=== PATIENT | female | born 1980 | race Caucasian/White ===

== ENCOUNTER 2017-07-16 19:32 | Emergency (ER) | payer OTHER ==
[2017-07-16 19:58] LABS: Amorphous Sediment,Urine Rare /hpf; Appearance,Urine Cloudy (Clear); Bacteria,Urine Rare /hpf; Bilirubin,Urine Negative (Negative); Glucose,Urine (UA) Negative (Negative); Ketones,Urine 1+ (Negative); Leukocyte Esterase,Urine Trace (Negative); Mucus,Urine Moderate /hpf; Nitrite,Urine Negative (Negative); PH, Urine 5.5 (5.0-8.0); Particle Count 14409; Protein,Urine 1+ (Negative); RBC,Urine 5 /hpf (0-5); Specific Gravity,Urine 1.041 (1.001-1.035); Squamous Epithelial Cell,Urine 17 /hpf (0-4); UA Billing (MACRO vs. MICRO) MICRO; WBC,Urine 2 /hpf (0-5)
[2017-07-16] MEDS ORDERED: KETOROLAC 30 MG/ML 1 ML VIAL IVP STA (20:25)
[2017-07-16 20:56] LABS: Basophils # (A) 0.1 k/uL (0-0.2); Basophils % (A) 0 %; CHCM 34.5; Eosinophils # (A) 0.4 k/uL (0-0.7); Eosinophils % (A) 4 %; HCT 44.4 % (34.0-46.0); HGB 14.9 gm/dL (11.4-16.0); Luc # (Auto) 0.31; Luc % (Auto) 3; Lymphocytes # (A) 3.4 k/uL (1.0-4.8); Lymphocytes % (A) 30 %; MCH 32.3 pg (25.0-35.0); MCHC 33.6 g/dL (31.0-37.0); MCV 96.2 fL (80.0-100.0); Mean Platelet Volume 6.8; Monocytes # (A) 0.6 k/uL (0-1.0); Monocytes % (A) 5 %; Neutrophils # (A) 6.6 k/uL (1.3-7.7); Neutrophils % (A) 58 %; RBC 4.61 m/uL (3.80-5.40); RDW 12.6 % (11.5-15.5); WBC 11.3 k/uL (3.8-10.6); WBC (Perox) 10.82
[2017-07-16 21:02] LABS: Anion Gap 14 mmol/L; Blood Urea Nitrogen 18 mg/dL (7-17); Calcium 10.6 mg/dL (8.4-10.2); Carbon Dioxide 21 mmol/L (22-30); Chloride 104 mmol/L (98-107); Glucose 83 mg/dL (74-99); Non-African American GFR(MDRD) >60 (>60 ml/min/1.73 sqM); Potassium 3.8 mmol/L (3.5-5.1); Sodium 139 mmol/L (137-145)
--- NOTE | 2017-07-16 21:18 | CT ---
EXAMINATION TYPE: CT renal stones wo con DATE OF EXAM: 07/16/2017 HISTORY: Low back pain. CT DLP: 506.90 mGycm. Automated Exposure Control for Dose Reduction was Utilized. TECHNIQUE: CT scan of the abdomen and pelvis is performed without oral or IV contrast. COMPARISON: NONE FINDINGS: Lung bases are clear of consolidation. There is no pleural effusion. There is no pericardi al effusion. Liver spleen pancreas gallbladder appear normal. Bile ducts are not dilated. There is no adrenal mass. Kidneys show normal size and contour. There is no hydronephrosis. There is no evidence of a renal calculus. There is no retroperitoneal adenopathy. There is no ascites. Appendi x appears normal. There is no free fluid. Bladder distends smoothly. There is no sign of a pelvic mas s. I see no intestinal wall thickening. There are no dilated loops. The bony structures are intact. CONCLUSION: Negative CT scan of the abdomen and pelvis. No evidence of renal stone or obstruction.
--- NOTE | 2017-07-16 21:48 | ED ---
General Adult HPI - General Chief complaint: Abdominal Pain Stated complaint: Abd Pain Time Seen by Provider: 07/16/17 19:44 Source: patient Mode of arrival: ambulatory Limitations: no limitations - History of Present Illness Initial comments: 37-year-old female presented for evaluation of lower back pain since last . She states her symptoms initially started with dysuria and urinary hesitancy which has since resolved however she denies back pain. She states that this is consistent with her previous diagnoses of pyelonephritis however she denies any associated fevers, chills, nausea, vomiting. She denies any associated abdominal pain, diarrhea, or constipation. - Related Data Home Medications Medication Instructions Recorded Confirmed Aspirin/Acetaminophen/Caffeine 3 tab PO DAILY PRN 07/16/17 07/16/17 [Excedrin Extra Strength Caplet] Previous Rx's Medication Instructions Recorded Ibuprofen [Motrin] 800 mg PO TID #30 tab 07/16/17 Ondansetron Odt [Zofran Odt] 4 mg PO Q8HR PRN #7 tab 07/16/17 Allergies Allergy/AdvReac Type Severity Reaction Status Date / Time sulfamethoxazole Allergy Rash/Hives Verified 07/16/17 19:50 [From Bactrim] trimethoprim [From Bactrim] Allergy Rash/Hives Verified 07/16/17 19:50 Review of Systems ROS Statement: Those systems with pertinent positive or pertinent negative responses have been documented in the HPI. ROS Other: All systems not noted in ROS Statement are negative. Constitutional: Denies: fever, chills Eyes: Denies: eye pain, vision change ENT: Denies: ear pain, throat pain Respiratory: Denies: cough, dyspnea Cardiovascular: Denies: chest pain, palpitations Endocrine: Denies: fatigue, polydipsia, polyuria Gastrointestinal: Denies: abdominal pain, nausea, vomiting Genitourinary: Reports: dysuria, other (Urinary hesitancy). Denies: urgency, hematuria, discharge, abnormal menses, dyspareunia Musculoskeletal: Reports: back pain. Denies: arthralgia, myalgia Skin: Denies: rash, lesions Neurological: Denies: headache, weakness Psychiatric: Denies: anxiety, depression Hematological/Lymphatic: Denies: easy bleeding, easy bruising Past Medical History Past Medical History: No Reported History History of Any Multi-Drug Resistant Organisms: None Reported Past Surgical History: Section Past Psychological History: No Psychological Hx Reported Smoking Status: Current every day smoker Past Alcohol Use History: Occasional Past Drug Use History: None Reported General Exam Limitations: no limitations General appearance: alert, in no apparent distress Head exam: Present: atraumatic, normocephalic, normal inspection Eye exam: Present: normal appearance, PERRL, EOMI. Absent: scleral icterus, conjunctival injection, periorbital swelling ENT exam: Present: normal exam, mucous membranes moist Neck exam: Present: normal inspection. Absent: tenderness, meningismus, lymphadenopathy Respiratory exam: Present: normal lung sounds bilaterally. Absent: respiratory distress, wheezes, rales, rhonchi, stridor Cardiovascular Exam: Present: regular rate, normal rhythm, normal heart sounds. Absent: systolic murmur, diastolic murmur, rubs, gallop, clicks GI/Abdominal exam: Present: soft, normal bowel sounds. Absent: distended, tenderness, guarding, rebound, rigid Rectal exam: Present: deferred Extremities exam: Present: normal inspection, full ROM, normal capillary refill. Absent: tenderness, pedal edema, joint swelling, calf tenderness Back exam: Present: full ROM, tenderness, CVA tenderness (R), CVA tenderness (L) , paraspinal tenderness. Absent: muscle spasm, vertebral tenderness, rash noted Neurological exam: Present: alert, oriented X3, CN II-XII intact Psychiatric exam: Present: normal affect, normal mood Skin exam: Present: warm, dry, intact, normal color. Absent: rash Course Vital Signs 07/16/17 07/16/17 19:34 21:59 Temperature 98 F 97.1 F L Pulse Rate 83 85 Respiratory 18 16 Rate Blood Pressure 116/80 118/75 O2 Sat by Pulse 97 100 Oximetry Medical Decision Making - Medical Decision Making 37-year-old female presented for evaluation of dysuria and low back pain present since last . She states this is consistent with her previous diagnoses of pyelonephritis. On physical examination she appears to be in mild discomfort however exam is tolerated well and she does have left and right CVA tenderness as well as low back pain. Abdomen is soft and non- peritoneal without guarding, rigidity, or rebound. Presentation is concerning for urinary tract infection versus pyelonephritis versus kidney stones. We'll obtain urinalysis, labs, CT abdomen and pelvis and provide pain control. Labs revealed no significant abnormalities over the urine appears to be contaminated. We'll send urine culture. CT abdomen and pelvis shows no acute process. The patient was reevaluated and had resolution of her symptoms. She was informed of these results and through shared decision making it was determined that she would be discharged with instructions to follow-up with her primary care physician but to return to this facility if her symptoms should worsen or persist. The patient acknowledged an understanding of all information provided and agreed with this plan of care. - Lab Data Result diagrams: 07/16/17 20:43 07/16/17 20:43 Lab Results 07/16/17 07/16/17 07/16/17 Range/Units 19:44 19:44 20:43 WBC (3.8-10.6) k/uL RBC (3.80-5.40) m/uL Hgb (11.4-16.0) gm/dL Hct (34.0-46.0) % MCV (80.0-100.0) fL MCH (25.0-35.0) pg MCHC (31.0-37.0) g/dL RDW (11.5-15.5) % Plt Count (150-450) k/uL Neutrophils % % Lymphocytes % % Monocytes % % Eosinophils % % Basophils % % Neutrophils # (1.3-7.7) k/uL Lymphocytes # (1.0-4.8) k/uL Monocytes # (0-1.0) k/uL Eosinophils # (0-0.7) k/uL Basophils # (0-0.2) k/uL Sodium 139 (137-145) mmol/L Potassium 3.8 (3.5-5.1) mmol/L Chloride 104 (98-107) mmol/L Carbon Dioxide 21 L (22-30) mmol/L Anion Gap 14 mmol/L BUN 18 H (7-17) mg/dL Creatinine 0.91 (0.52-1.04) mg/dL Est GFR (MDRD) Af Amer >60 (>60 ml/min/1.73 sqM) Est GFR (MDRD) Non-Af >60 (>60 ml/min/1.73 sqM) Glucose 83 (74-99) mg/dL Calcium 10.6 H (8.4-10.2) mg/dL Lipase 44 (23-300) U/L Urine Color Yellow Urine Appearance Cloudy H (Clear) Urine pH 5.5 (5.0-8.0) Ur Specific [place] 1.041 H (1.001-1.035) Urine Protein 1+ H (Negative) Urine Glucose (UA) Negative (Negative) Urine Ketones 1+ H (Negative) Urine Blood Negative (Negative) Urine Nitrite Negative (Negative) Urine Bilirubin Negative (Negative) Urine Urobilinogen 2.0 (<2.0) mg/dL Ur Leukocyte Esterase Trace H (Negative) Urine RBC 5 (0-5) /hpf Urine WBC 2 (0-5) /hpf Ur Squamous Epith Cells 17 H (0-4) /hpf Amorphous Sediment Rare H (None) /hpf Urine Bacteria Rare H (None) /hpf Urine Mucus Moderate H (None) /hpf Urine HCG, Qual Not Detected (Not Detectd) 07/16/17 Range/Units 20:43 WBC 11.3 H (3.8-10.6) k/uL RBC 4.61 (3.80-5.40) m/uL Hgb 14.9 (11.4-16.0) gm/dL Hct 44.4 (34.0-46.0) % MCV 96.2 (80.0-100.0) fL MCH 32.3 (25.0-35.0) pg MCHC 33.6 (31.0-37.0) g/dL RDW 12.6 (11.5-15.5) % Plt Count 333 (150-450) k/uL Neutrophils % 58 % Lymphocytes % 30 % Monocytes % 5 % Eosinophils % 4 % Basophils % 0 % Neutrophils # 6.6 (1.3-7.7) k/uL Lymphocytes # 3.4 (1.0-4.8) k/uL Monocytes # 0.6 (0-1.0) k/uL Eosinophils # 0.4 (0-0.7) k/uL Basophils # 0.1 (0-0.2) k/uL Sodium (137-145) mmol/L Potassium (3.5-5.1) mmol/L Chloride (98-107) mmol/L Carbon Dioxide (22-30) mmol/L Anion Gap mmol/L BUN (7-17) mg/dL Creatinine (0.52-1.04) mg/dL Est GFR (MDRD) Af Amer (>60 ml/min/1.73 sqM) Est GFR (MDRD) Non-Af (>60 ml/min/1.73 sqM) Glucose (74-99) mg/dL Calcium (8.4-10.2) mg/dL Lipase (23-300) U/L Urine Color Urine Appearance (Clear) Urine pH (5.0-8.0) Ur Specific [place] (1.001-1.035) Urine Protein (Negative) Urine Glucose (UA) (Negative) Urine Ketones (Negative) Urine Blood (Negative) Urine Nitrite (Negative) Urine Bilirubin (Negative) Urine Urobilinogen (<2.0) mg/dL Ur Leukocyte Esterase (Negative) Urine RBC (0-5) /hpf Urine WBC (0-5) /hpf Ur Squamous Epith Cells (0-4) /hpf Amorphous Sediment (None) /hpf Urine Bacteria (None) /hpf Urine Mucus (None) /hpf Urine HCG, Qual (Not Detectd) Disposition Clinical Impression: Back pain, Dysuria Disposition: HOME SELF-CARE Condition: Stable Instructions: Urinary Tract Infection in Women (ED), Acute Low Back Pain (ED) Additional Instructions: Please use medication as discussed. Please follow up with family doctor if symptoms have not improved over the next two days. Please return to the emergency room if your symptoms increase or worsen or for any other concerns. Prescriptions: Ibuprofen [Motrin] 800 mg PO TID #30 tab Ondansetron Odt [Zofran Odt] 4 mg PO Q8HR PRN #7 tab PRN Reason: Nausea Referrals: Selam Renee MD [Primary Care Provider] - 1-2 days Time of Disposition: 21:48
[2017-07-16 22:00] VITALS: BP 118/75; PULSE 85; RESP 16; TEMP 97.1
== END 2017-07-16 22:03 | disposition home or self-care (01) ==
LOC: EC 19:32
DX: M54.5 Low back pain (principal); R30.0 Dysuria; F17.200 Nicotine dependence, unspecified, uncomplicated; Z88.2 Allergy status to sulfonamides
CPT/HCPCS: 36415; 80048; 83690; 85025; 81001; 81025; 87086; 87077; 87186; 74150; 99284; 96374; J1885

== ENCOUNTER 2018-05-28 19:33 | Observation (INO) | payer OTHER ==
[2018-05-28] MEDS ORDERED: SODIUM CHLORIDE 0.9% 500 ML IV STA (19:54)
[2018-05-28] MEDS ORDERED: SODIUM CHLORIDE 0.9% 1,000 ML IV STA (19:54)
[2018-05-28] MEDS ORDERED: KETOROLAC 30 MG/ML 1 ML VIAL IVP STA (19:55)
[2018-05-28] MEDS ORDERED: ONDANSETRON 4 MG/2 ML VIAL IVP STA (19:55)
[2018-05-28] MEDS ORDERED: ACETAMINOPHEN IV (For NPO) 1,000 MG in EMPTY BAG 1 BAG IVPB STA (19:55)
--- NOTE | 2018-05-28 19:59 | ED ---
Fever HPI - General Source: patient, EMS Mode of arrival: EMS <Chani Turcios - Last Filed: 05/28/18 23:45> <Jacey Ingram - Last Filed: 05/29/18 00:14> - General Chief Complaint: Fever Stated Complaint: Nausea,Fever Time Seen by Provider: 05/28/18 19:50 - History of Present Illness Initial Comments: 37-year-old female patient presents to the emergency department today for complaints of fever, vomiting, and diarrhea. Patient states that she has had symptoms for the last couple of days. Patient states that she feels weak and has a headache with this. Patient denies any cough, congestion, or sore throat. States that she has had a numerous episodes of both vomiting and diarrhea today. Denies any hematemesis, hematochezia, or melena. Denies any abdominal pain with this. Denies any sick contacts or recent travel. Denies any ingestion of questionable foods. Patient is also complaining of right hip pain. Patient states a couple of days ago she locked herself out of the house and tried to break the door down with her right hip. She denies any other injuries. Denies any calf pain or tenderness. Patient denies any recent rash, shortness breath, chest pain, back pain, numbness, tingling, dizziness, weakness , hematuria, dysuria, urinary urgency, urinary frequency, headache, visual changes, or any other complaints. (Chani Turcios) - Related Data Home Medications Medication Instructions Recorded Confirmed No Known Home Medications 05/28/18 05/28/18 Allergies Allergy/AdvReac Type Severity Reaction Status Date / Time sulfamethoxazole Allergy Rash/Hives Verified 05/28/18 19:49 [From Bactrim] trimethoprim [From Bactrim] Allergy Rash/Hives Verified 05/28/18 19:49 Review of Systems ROS Other: All systems not noted in ROS Statement are negative. <Chani Turcios - Last Filed: 05/28/18 23:45> ROS Other: All systems not noted in ROS Statement are negative. <Jacey Ingram - Last Filed: 05/29/18 00:14> ROS Statement: Those systems with pertinent positive or pertinent negative responses have been documented in the HPI. Past Medical History Past Medical History: No Reported History History of Any Multi-Drug Resistant Organisms: None Reported Past Surgical History: Section Past Psychological History: No Psychological Hx Reported Smoking Status: Current every day smoker Past Alcohol Use History: Occasional Past Drug Use History: None Reported <TamraUnruly bullockina Finn - Last Filed: 05/28/18 23:45> General Exam General appearance: alert, in no apparent distress, other (This is a well- developed, well-nourished adult female patient in mild distress related to discomfort. Vital signs upon presentation are temperature 101.6F, pulse 89, respirations 18, blood pressure 105/67, pulse ox 96% on room air.) Eye exam: Present: normal appearance, PERRL, EOMI. Absent: scleral icterus, conjunctival injection, periorbital swelling ENT exam: Present: normal exam, normal oropharynx, mucous membranes moist Respiratory exam: Present: normal lung sounds bilaterally. Absent: respiratory distress, wheezes, rales, rhonchi, stridor Cardiovascular Exam: Present: regular rate, normal rhythm, normal heart sounds. Absent: systolic murmur, diastolic murmur, rubs, gallop, clicks GI/Abdominal exam: Present: soft, normal bowel sounds. Absent: distended, tenderness, guarding, rebound, rigid Extremities exam: Present: normal inspection, full ROM, tenderness (Tenderness over the right lateral hip), normal capillary refill, other (Skin to the right lower [place] pink, warm, and dry. Cap refills less than 3 seconds. Pedal and posttibial pulses 2+ and equal bilaterally.). Absent: pedal edema, joint swelling, calf tenderness Neurological exam: Present: alert, oriented X3, CN II-XII intact Psychiatric exam: Present: normal affect, normal mood Skin exam: Present: warm, dry, intact, normal color. Absent: rash <Chani Turcios M - Last Filed: 05/28/18 23:45> Vital Signs 05/28/18 05/28/18 05/28/18 19:36 20:20 21:01 Temperature 101.6 F H 103.8 F H 101.8 F H Pulse Rate 89 Respiratory 18 Rate Blood Pressure 105/67 O2 Sat by Pulse 96 Oximetry 05/28/18 05/28/18 21:41 22:17 Temperature 100.3 F H 99.0 F Pulse Rate 78 83 Respiratory 16 16 Rate Blood Pressure 90/50 105/68 O2 Sat by Pulse 99 98 Oximetry Medical Decision Making - Lab Data Result diagrams: 05/28/18 20:15 05/28/18 20:15 <Chani Turcios - Last Filed: 05/28/18 23:45> - Lab Data Result diagrams: 05/28/18 20:15 05/28/18 20:15 <Jacey Ingram - Last Filed: 05/29/18 00:14> - Medical Decision Making 37-year-old female patient presented to the emergency department today with chief complaint of right hip pain, vomiting, and diarrhea. Upon arrival patient was febrile, temperature did reach 10 3F in the emergency department. Labs reviewed and are relatively unremarkable with a normal white blood cell count and normal lactic acid. Given lab findings and presence of fever chest x- ray was obtained to further evaluate source. Chest x-ray did reveal diffuse pneumonia in the left upper lobe and lingula. Patient did have low blood pressure 90/50 for one read here in the department. She was given 2 L of normal saline while here. I did reevaluate patient and questioned her further, as she does admit to having a slight cough and shortness of breath over the last couple of days. The patient has a very odd affect and is difficult to obtain information from her. Her drug screen was positive for cocaine and marijuana. Given her risky lifestyle and presence of diffuse Left upper lobe pneumonia we will admit for observation and give IV antibiotics. (Chani Turcios) I was available for consultation in the emergency department. The history and physical exam were done by the midlevel provider. I was consulted for this patient's care. I reviewed the case with the midlevel provider and based on their presentation of the patient, I agree with the assessment, medical decision making and plan of care as documented. Considering the patient's history of snorting cocaine, her presentation of fever and hypotension with an identified pneumonia I do feel this patient is high risk for having a poor outcome and will plan to place in observation unit for IV antibiotics and further monitoring. (Jacey Ingram) - Lab Data Lab Results 05/28/18 05/28/18 05/28/18 Range/Units 20:15 20:15 20:15 WBC 8.5 (3.8-10.6) k/uL RBC 4.07 (3.80-5.40) m/uL Hgb 13.3 (11.4-16.0) gm/dL Hct 37.9 (34.0-46.0) % MCV 93.1 (80.0-100.0) fL MCH 32.7 (25.0-35.0) pg MCHC 35.1 (31.0-37.0) g/dL RDW 13.2 (11.5-15.5) % Plt Count 214 (150-450) k/uL Neutrophils % 83 % Lymphocytes % 11 % Monocytes % 4 % Eosinophils % 1 % Basophils % 0 % Neutrophils # 7.0 (1.3-7.7) k/uL Lymphocytes # 0.9 L (1.0-4.8) k/uL Monocytes # 0.3 (0-1.0) k/uL Eosinophils # 0.1 (0-0.7) k/uL Basophils # 0.0 (0-0.2) k/uL Sodium 134 L (137-145) mmol/L Potassium 3.5 (3.5-5.1) mmol/L Chloride 99 (98-107) mmol/L Carbon Dioxide 25 (22-30) mmol/L Anion Gap 10 mmol/L BUN 11 (7-17) mg/dL Creatinine 0.64 (0.52-1.04) mg/dL Est GFR (CKD-EPI)AfAm >90 (>60 ml/min/1.73 sqM) Est GFR (CKD-EPI)NonAf >90 (>60 ml/min/1.73 sqM) Glucose 112 H (74-99) mg/dL Plasma Lactic Acid Konstantin 1.0 (0.7-2.0) mmol/L Calcium 8.7 (8.4-10.2) mg/dL Total Bilirubin 0.3 (0.2-1.3) mg/dL AST 39 H (14-36) U/L ALT 33 (9-52) U/L Alkaline Phosphatase 66 (38-126) U/L Total Protein 6.3 (6.3-8.2) g/dL Albumin 3.4 L (3.5-5.0) g/dL Urine Color Urine Appearance (Clear) Urine pH (5.0-8.0) Ur Specific [place] (1.001-1.035) Urine Protein (Negative) Urine Glucose (UA) (Negative) Urine Ketones (Negative) Urine Blood (Negative) Urine Nitrite (Negative) Urine Bilirubin (Negative) Urine Urobilinogen (<2.0) mg/dL Ur Leukocyte Esterase (Negative) Urine RBC (0-5) /hpf Urine WBC (0-5) /hpf Ur Squamous Epith Cells (0-4) /hpf Amorphous Sediment (None) /hpf Urine Mucus (None) /hpf Urine Opiates Screen (NotDetected) Ur Oxycodone Screen (NotDetected) Urine Methadone Screen (NotDetected) Ur Propoxyphene Screen (NotDetected) Ur Barbiturates Screen (NotDetected) U Tricyclic Antidepress (NotDetected) Ur Phencyclidine Scrn (NotDetected) Ur Amphetamines Screen (NotDetected) U Methamphetamines Scrn (NotDetected) U Benzodiazepines Scrn (NotDetected) Urine Cocaine Screen (NotDetected) U Marijuana (THC) Screen (NotDetected) 05/28/18 Range/Units 20:15 WBC (3.8-10.6) k/uL RBC (3.80-5.40) m/uL Hgb (11.4-16.0) gm/dL Hct (34.0-46.0) % MCV (80.0-100.0) fL MCH (25.0-35.0) pg MCHC (31.0-37.0) g/dL RDW (11.5-15.5) % Plt Count (150-450) k/uL Neutrophils % % Lymphocytes % % Monocytes % % Eosinophils % % Basophils % % Neutrophils # (1.3-7.7) k/uL Lymphocytes # (1.0-4.8) k/uL Monocytes # (0-1.0) k/uL Eosinophils # (0-0.7) k/uL Basophils # (0-0.2) k/uL Sodium (137-145) mmol/L Potassium (3.5-5.1) mmol/L Chloride (98-107) mmol/L Carbon Dioxide (22-30) mmol/L Anion Gap mmol/L BUN (7-17) mg/dL Creatinine (0.52-1.04) mg/dL Est GFR (CKD-EPI)AfAm (>60 ml/min/1.73 sqM) Est GFR (CKD-EPI)NonAf (>60 ml/min/1.73 sqM) Glucose (74-99) mg/dL Plasma Lactic Acid Konstantin (0.7-2.0) mmol/L Calcium (8.4-10.2) mg/dL Total Bilirubin (0.2-1.3) mg/dL AST (14-36) U/L ALT (9-52) U/L Alkaline Phosphatase (38-126) U/L Total Protein (6.3-8.2) g/dL Albumin (3.5-5.0) g/dL Urine Color Yellow Urine Appearance Cloudy H (Clear) Urine pH 6.5 (5.0-8.0) Ur Specific [place] 1.019 (1.001-1.035) Urine Protein 1+ H (Negative) Urine Glucose (UA) Negative (Negative) Urine Ketones Negative (Negative) Urine Blood Trace H (Negative) Urine Nitrite Negative (Negative) Urine Bilirubin Negative (Negative) Urine Urobilinogen 2.0 (<2.0) mg/dL Ur Leukocyte Esterase Negative (Negative) Urine RBC 2 (0-5) /hpf Urine WBC 17 H (0-5) /hpf Ur Squamous Epith Cells 4 (0-4) /hpf Amorphous Sediment Occasional H (None) /hpf Urine Mucus Few H (None) /hpf Urine Opiates Screen Not Detected (NotDetected) Ur Oxycodone Screen Not Detected (NotDetected) Urine Methadone Screen Not Detected (NotDetected) Ur Propoxyphene Screen Not Detected (NotDetected) Ur Barbiturates Screen Not Detected (NotDetected) U Tricyclic Antidepress Not Detected (NotDetected) Ur Phencyclidine Scrn Not Detected (NotDetected) Ur Amphetamines Screen Not Detected (NotDetected) U Methamphetamines Scrn Not Detected (NotDetected) U Benzodiazepines Scrn Not Detected (NotDetected) Urine Cocaine Screen Detected H (NotDetected) U Marijuana (THC) Screen Detected H (NotDetected) Disposition Decision to Admit Reason: Admit from EC Decision Date: 05/28/18 Decision Time: 23:48 <Chani Turcios - Last Filed: 05/28/18 23:45> <Jacey Ingram - Last Filed: 05/29/18 00:14> Clinical Impression: Left upper lobe pneumonia, Gastroenteritis Disposition: ADMITTED IP TO THIS HOSP Condition: Serious
[2018-05-28 20:47] LABS: Basophils % (A) 0 %; Eosinophils # (A) 0.1 k/uL (0-0.7); Eosinophils % (A) 1 %; HCT 37.9 % (34.0-46.0); HGB 13.3 gm/dL (11.4-16.0); Lymphocytes # (A) 0.9 k/uL (1.0-4.8); Lymphocytes % (A) 11 %; MCH 32.7 pg (25.0-35.0); MCHC 35.1 g/dL (31.0-37.0); MCV 93.1 fL (80.0-100.0); Mean Platelet Volume 7.9; Monocytes # (A) 0.3 k/uL (0-1.0); Monocytes % (A) 4 %; Neutrophils % (A) 83 %; Platelet Count 214 k/uL (150-450); RBC 4.07 m/uL (3.80-5.40); RDW 13.2 % (11.5-15.5); WBC 8.5 k/uL (3.8-10.6)
[2018-05-28 20:55] LABS: Amorphous Sediment,Urine Occasional /hpf; Appearance,Urine Cloudy (Clear); Bilirubin,Urine Negative (Negative); Blood,Urine Trace (Negative); Color,Urine Yellow; Glucose,Urine (UA) Negative (Negative); Ketones,Urine Negative (Negative); Leukocyte Esterase,Urine Negative (Negative); Mucus,Urine Few /hpf; Nitrite,Urine Negative (Negative); PH, Urine 6.5 (5.0-8.0); Protein,Urine 1+ (Negative); RBC,Urine 2 /hpf (0-5); Specific Gravity,Urine 1.019 (1.001-1.035); Squamous Epithelial Cell,Urine 4 /hpf (0-4); WBC,Urine 17 /hpf (0-5)
[2018-05-28 20:56] LABS: ALT 33 U/L (9-52); AST 39 U/L (14-36); Albumin 3.4 g/dL (3.5-5.0); Alkaline Phosphatase 66 U/L (38-126); Anion Gap 10 mmol/L; Blood Urea Nitrogen 11 mg/dL (7-17); Calcium 8.7 mg/dL (8.4-10.2); Carbon Dioxide 25 mmol/L (22-30); Chloride 99 mmol/L (98-107); Glucose 112 mg/dL (74-99); Potassium 3.5 mmol/L (3.5-5.1); Sodium 134 mmol/L (137-145); Total Bilirubin 0.3 mg/dL (0.2-1.3); Total Protein 6.3 g/dL (6.3-8.2)
--- NOTE | 2018-05-28 20:56 | XR ---
PROCEDURE: XR Hip RT and AP Pelvis 3V DATE AND TIME: 05/28/2018 8:48 PM CLINICAL INDICATION: Pain TECHNIQUE: AP pelvis. Coned right hip AP and frog-leg lateral views. COMPARISON: None FINDINGS: There is no fracture or malalignment. The soft tissues are unremarkable. IMPRESSION: Negative examination.
[2018-05-28 21:00] LABS: Amphetamine Screen,Urine Not Detected (NotDetected); Barbiturate Screen,Urine Not Detected (NotDetected); Benzodiazepines Screen,Urine Not Detected (NotDetected); Cocaine Screen,Urine Detected (NotDetected); Methadone Screen, Urine Not Detected (NotDetected); Opiate Screen,Urine Not Detected (NotDetected); Oxycodone Screen, Urine Not Detected (NotDetected); Phencyclidine Screen,Urine Not Detected (NotDetected); Tricyclic Antidepressant,Urine Not Detected (NotDetected); Urn Cannabinoid Scrn Detected (NotDetected)
[2018-05-28] MEDS ORDERED: SODIUM CHLORIDE 0.9% 500 ML IV ONE (22:09)
--- NOTE | 2018-05-28 22:45 | XR ---
EXAMINATION TYPE: XR chest 2V DATE OF EXAM: 05/28/2018 COMPARISON: NONE HISTORY: Fever for 3 days TECHNIQUE: Frontal and lateral views of the chest are obtained. FINDINGS: There is a diffuse pneumonia in the anterior segment left upper lobe and lingula left uppe r lobe. The other lung daniels are clear. Heart and mediastinum are normal. There is no pleural effusi on. Bony thorax is intact. IMPRESSION: Left upper lobe pneumonia.
[2018-05-28] MEDS ORDERED: ACETAMINOPHEN TAB 325 MG TAB PO PRN (23:43)
[2018-05-28] MEDS ORDERED: IBUPROFEN 400 MG TAB PO PRN (23:43)
[2018-05-28] MEDS ORDERED: ONDANSETRON 4 MG/2 ML VIAL IVP PRN (23:43)
[2018-05-28] MEDS ORDERED: NALOXONE 0.4 MG/ML 1 ML VIAL IV PRN (23:43)
[2018-05-28] MEDS ORDERED: VANCOMYCIN IV PER PHARMACY 1 EACH MISC MISCELLANE PRN (23:44)
[2018-05-28] MEDS ORDERED: LEVOFLOXACIN 750MG-D5W PMX 750 MG in DEXTROSE/WATER 1 150ML.BAG IVPB STA (23:44)
[2018-05-28] MEDS ORDERED: SODIUM CHLORIDE 0.9% 1,000 ML IV SCH (23:45)
[2018-05-29] MEDS ORDERED: VANCOMYCIN 1,500 MG in SODIUM CHLORIDE 0.9% 250 ML IVPB ONE ×2
[2018-05-29] MEDS: BENZOCAINE/MENTHOL LOZENG 1 EACH LOZENGE MUCOUS MEM PRN ×3 (05:26→16:24)
[2018-05-29 08:13] LABS: Basophils % (A) 0 %; Eosinophils # (A) 0.1 k/uL (0-0.7); Eosinophils % (A) 2 %; HCT 34.6 % (34.0-46.0); HGB 11.7 gm/dL (11.4-16.0); Lymphocytes # (A) 0.9 k/uL (1.0-4.8); Lymphocytes % (A) 15 %; MCH 32.4 pg (25.0-35.0); MCHC 33.8 g/dL (31.0-37.0); MCV 95.9 fL (80.0-100.0); Mean Platelet Volume 7.6; Monocytes # (A) 0.2 k/uL (0-1.0); Monocytes % (A) 4 %; Neutrophils # (A) 4.4 k/uL (1.3-7.7); Neutrophils % (A) 77 %; Platelet Count 202 k/uL (150-450); RBC 3.61 m/uL (3.80-5.40); RDW 13.4 % (11.5-15.5); WBC 5.7 k/uL (3.8-10.6)
[2018-05-29 08:16] VITALS: RESP 18
[2018-05-29 08:37] LABS: ALT 23 U/L (9-52); AST 37 U/L (14-36); Albumin 2.7 g/dL (3.5-5.0); Alkaline Phosphatase 56 U/L (38-126); Anion Gap 9 mmol/L; Blood Urea Nitrogen 11 mg/dL (7-17); Carbon Dioxide 23 mmol/L (22-30); Chloride 105 mmol/L (98-107); Glucose 117 mg/dL (74-99); Potassium 3.4 mmol/L (3.5-5.1); Sodium 137 mmol/L (137-145); Total Bilirubin 0.2 mg/dL (0.2-1.3); Total Protein 5.5 g/dL (6.3-8.2)
--- NOTE | 2018-05-29 11:32 | P.HPIM ---
History of Present Illness This is a pleasant 67 years old female with past medical history of pneumonia and depression and current cigarette smoker. She follows up with Dr. Almaraz home she hasn't seen for a while. She presents because of fever for for 5 days ago associated with chills and diarrhea about 10 times of loose watery stool with no blood. No associated abdominal pain. However patient she have nausea and vomiting about 3 times per day with no blood in it. Also patient complains from coughing associated with clear phlegm for the last 3 days associated with dyspnea or chest pain. Patient also complains from right hip pain. She reports trauma to her right hip area with her home door for about 2 weeks ago, smoked hurting again about couple days ago. Patient denies sick contacts however she feels malaise and fatigue. She says her last menstrual period about 6 days ago On admission she had a fever of 101.6. With no leukocytosis. Her sodium is 137. Potassium 3.4. Creatinine 0.6. AST is mildly elevated at 37. While a LT and total bilirubin are within normal limits. UA is not suggestive of infection. Urine toxicology is positive for cocaine and marijuana Patient in the emergency room was treated with IV fluids and she was started on levofloxacin and IV vancomycin with symptomatic treatment. Review of Systems CONSTITUTIONAL: No fever, no malaise, no fatigue. HEENT: No recent visual problems or hearing problems. Denied any sore throat. CARDIOVASCULAR: No orthopnea, PND, no palpitations, no syncope. PULMONARY: no hemoptysis. GASTROINTESTINAL: no abdominal pain. Normoactive bowel sounds. NEUROLOGICAL: No headaches, no weakness, no numbness. HEMATOLOGICAL: Denies any bleeding or petechiae. GENITOURINARY: Denies any burning micturition, frequency, or urgency. MUSCULOSKELETAL/RHEUMATOLOGICAL: Denies any joint pain, swelling, or any muscle pain. ENDOCRINE: Denies any polyuria or polydipsia. Past Medical History Past Medical History: Pneumonia Additional Past Medical History / Comment(s): pneumonia 05/29/2018 History of Any Multi-Drug Resistant Organisms: None Reported Past Surgical History: Section Past Anesthesia/Blood Transfusion Reactions: No Reported Reaction Past Psychological History: Depression Additional Psychological History / Comment(s): patient reports depression, never diagnosed, patient reports recent passing of father Smoking Status: Current every day smoker Past Alcohol Use History: Occasional Past Drug Use History: None Reported Additional Drug Use History / Comment(s): pt denies drug use. drup screen + for cocaine and marijuana - Past Family History Father Family Medical History: Cancer Additional Family Medical History / Comment(s): father recently passed of lung cancer Mother Family Medical History: No Reported History Brother(s) Family Medical History: No Reported History Sister(s) Family Medical History: No Reported History Daughter(s) Family Medical History: No Reported History Son(s) Family Medical History: No Reported History Medications and Allergies Home Medications Medication Instructions Recorded Confirmed Type No Known Home Medications 05/28/18 05/29/18 History Allergies Allergy/AdvReac Type Severity Reaction Status Date / Time sulfamethoxazole Allergy Rash/Hives Verified 05/29/18 00:38 [From Bactrim] trimethoprim [From Bactrim] Allergy Rash/Hives Verified 05/29/18 00:38 Physical Exam Vitals: Vital Signs Temp Pulse Pulse Resp BP BP Pulse Ox 05/29/18 08:00 80 18 05/29/18 07:45 99.3 F 80 18 105/76 99 05/29/18 04:01 98.2 F 62 16 105/69 98 05/29/18 03:26 18 05/29/18 00:48 18 05/29/18 00:24 98.4 F 64 18 101/69 98 05/28/18 22:17 99.0 F 83 16 105/68 98 05/28/18 21:41 100.3 F H 78 16 90/50 99 05/28/18 21:01 101.8 F H 05/28/18 20:20 103.8 F H 05/28/18 19:36 101.6 F H 89 18 105/67 96 Intake and Output 05/28/18 05/29/18 05/29/18 22:59 06:59 14:59 Intake Total 375 120 Balance 375 120 Intake: IV 375 Sodium Chloride 0.9% 1, 375 000 ml @ 75 mls/hr IV . [id number] [facility] Rx#:[id number] Oral 120 Other: Voiding Method Toilet Toilet # Voids 2 Weight 77.111 kg 73.3 kg GENERAL: The patient is alert and oriented x3, not in any acute distress. Well developed, well nourished. HEENT: Pupils are round and equally reacting to light. EOMI. No scleral icterus. No conjunctival pallor. Normocephalic, atraumatic. No pharyngeal erythema. No thyromegaly. CARDIOVASCULAR: S1 and S2 present. No murmurs, rubs, or gallops. -PULMONARY: Chest is clear to auscultation, no wheezing or crackles. Left upper lobe crackles ABDOMEN: Soft, nontender, nondistended, normoactive bowel sounds. No palpable organomegaly. MUSCULOSKELETAL: No joint swelling or deformity. EXTREMITIES: No cyanosis, clubbing, or pedal edema. NEUROLOGICAL: Gross neurological examination did not reveal any focal deficits. SKIN: No rashes. Results CBC & Chem 7: 05/29/18 07:42 05/29/18 07:42 Labs: Abnormal Lab Results - Last 24 Hours (Table) 05/28/18 05/28/18 05/28/18 Range/Units 20:15 20:15 20:15 RBC (3.80-5.40) m/uL Lymphocytes # 0.9 L (1.0-4.8) k/uL Sodium 134 L (137-145) mmol/L Potassium (3.5-5.1) mmol/L Glucose 112 H (74-99) mg/dL Calcium (8.4-10.2) mg/dL AST 39 H (14-36) U/L Total Protein (6.3-8.2) g/dL Albumin 3.4 L (3.5-5.0) g/dL Urine Appearance Cloudy H (Clear) Urine Protein 1+ H (Negative) Urine Blood Trace H (Negative) Urine WBC 17 H (0-5) /hpf Amorphous Sediment Occasional H (None) /hpf Urine Mucus Few H (None) /hpf Urine Cocaine Screen Detected H (NotDetected) U Marijuana (THC) Screen Detected H (NotDetected) 05/29/18 05/29/18 Range/Units 07:42 07:42 RBC 3.61 L (3.80-5.40) m/uL Lymphocytes # 0.9 L (1.0-4.8) k/uL Sodium (137-145) mmol/L Potassium 3.4 L (3.5-5.1) mmol/L Glucose 117 H (74-99) mg/dL Calcium 8.0 L (8.4-10.2) mg/dL AST 37 H (14-36) U/L Total Protein 5.5 L (6.3-8.2) g/dL Albumin 2.7 L (3.5-5.0) g/dL Urine Appearance (Clear) Urine Protein (Negative) Urine Blood (Negative) Urine WBC (0-5) /hpf Amorphous Sediment (None) /hpf Urine Mucus (None) /hpf Urine Cocaine Screen (NotDetected) U Marijuana (THC) Screen (NotDetected) Thrombosis Risk Factor Assmnt - Choose All That Apply Any of the Below Risk Factors Present?: Yes Each Factor Represents 1 point: Obesity (BMI >25) Other Risk Factors: No Other congenital or acquired thrombophilia - If yes, enter type in comment: No Thrombosis Risk Factor Assessment Total Risk Factor Score: 1 Thrombosis Risk Factor Assessment Level: Low Risk Assessment and Plan Assessment: Community-acquired left upper lobe pneumonia Diarrhea, rule out C. diff Dehydration Substance abuse, including cocaine and marijuana Right hip pain, with negative x-ray Plan: This is a pleasant 37 years old female who presents because of left upper lobe pneumonia. He was started on antibiotics with Levaquin and vancomycin in the emergency room. Call infectious disease consult and continue with antibiotics upon his recommendation. Continue with IV fluids. Follow-up culture results. Monitor lytes and vitals. Continue same treatment. Continue symptomatic treatment. GI and DVT prophylaxis. Pain management. Further recommendations based on the clinical course of the patient DVT prophylaxis: Subcutaneous heparin GI prophylaxis: Pepcid Prognosis is guarded
[2018-05-29] MEDS ORDERED: VANCOMYCIN 1,500 MG in SODIUM CHLORIDE 0.9% 250 ML IVPB SCH (14:00)
[2018-05-29 15:53] VITALS: BP 100/64; PULSE 58; TEMP 98.4
[2018-05-29] MEDS ORDERED: HEPARIN SODIUM,PORCINE 5,000 UNIT/ML 1 ML VIAL SQ SCH (21:00)
[2018-05-29] MEDS ORDERED: FAMOTIDINE 20 MG/2 ML VIAL IV SCH (21:00)
--- NOTE | 2018-05-29 21:39 | CONS ---
CONSULTATION DATE OF SERVICE: 05/29/2018. REASON FOR CONSULTATION: Fever and pneumonia. HISTORY OF PRESENT ILLNESS: The patient is a 37-year-old female who presented to the [facility] ER on 05/28/2018 in the evening with chief complaints of fever, vomiting and diarrhea. Her symptoms have been going on for a day or 2 before she presented to the hospital. The patient denies significant URI symptoms. However, she did have a cough which was [id number] in intensity bringing up some sputum. No hemoptysis though. No chest pain. Patient complaining of some nausea, vomiting and did have some diarrhea, but no hematochezia or abdominal pain. With these symptoms, the patient was evaluated by the ER physician. On arrival to the ER, the patient did have a chest x-ray that was suggestive of left upper lobe pneumonia. The patient also had a fever of 101.6-103.8 degrees Fahrenheit. The patient's white count was normal though the UA was negative. Urine drug screen was positive for cocaine and marijuana. Influenza A and B PCR were negative. The patient was started on vancomycin and Levaquin. Infectious Disease was consulted for further recommendation of antibiotic therapy. REVIEW OF SYSTEMS: CONSTITUTIONAL: Positive for weakness along with the fever. Eyes: No complaint. ENT no complaint. Respiratory as per HPI. Cardiovascular: No complaint. Genitourinary no complaint. Gastrointestinal: As per HPI. Musculoskeletal no complaint. Integumentary: No complaint. PSYCHOLOGICAL: No complaint. Neurologic no complaint. PAST MEDICAL HISTORY: Significant for depression. PAST SURGICAL HISTORY: . SOCIAL HISTORY: Positive for smoking, currently every day smoking. Occasionally drinks alcohol. The patient denies any drug use though urine drug screen was positive. FAMILY HISTORY: Father with history of lung cancer. ALLERGIES: TO SULFAMETHOXAZOLE. MEDICATION: Medications include the patient currently on Tylenol, Cepacol, Pepcid, heparin, Motrin, Levaquin 750 daily, Zofran, vancomycin pharmacy to dose. EXAMINATION: Blood pressure is 100/64, pulse of 68, temperature 98.4. She is 100% on room air. General description is a middle-aged female lying in bed in no distress. No tachypnea or accessory muscle of respiration use. HEENT: Shows no pallor or scleral icterus. Oral mucosa membranes moist. . Neck: Trachea central. No thyromegaly. LUNGS: Unlabored breathing with coarse breath sounds in the left side. No wheeze. Heart: S1, S2, regular rate and rhythm. ABDOMEN: Soft, no tenderness. No guarding or rigidity. Extremities: No edema of feet. Skin examination: No rash or mass palpable. Neurological: Patient is awake, alert, oriented times three. Mood and affect normal. LABS: Hemoglobin is 11.8, white count 5.7, BUN of 11, creatinine 0.62. Electrolytes have been normal. Liver enzymes mildly elevated. Urine has been negative. The urine drug screen positive for cocaine and marijuana, influenze PCR was negative. Chest x-ray with left upper lobe pneumonia. DIAGNOSTIC IMPRESSION AND PLAN: Patient admitted to the hospital with acute left upper lobe pneumonia. The patient did have a fever, did have respiratory symptoms in addition to the gastrointestinal symptoms, underlying legionella pneumonia to be ruled out to the likely etiology. Clinically, no other clinical focus of infection. Clinically doubt MRSA pneumonia. PLAN: 1. Discontinue vancomycin to decrease nephrotoxicity, clinically doubt MRSA infection. 2. Start the patient on Rocephin 1 g daily. Continue with Levaquin. 3. Obtain sputum for Gram stain and culture, sensitivity and check urine for Legionella antigen. 4. We will follow up on clinical condition and culture to further adjust medication if needed. Thank you for this consultation. Will follow this patient along with you. ALTAL / DORAN: [id number] /
--- NOTE | 2018-05-30 02:02 | P.DS ---
Providers Date of admission: 05/28/18 23:43 Attending physician: Saeid Chairez Consults: 05/29/18 11:45 Consult Physician Routine Consulting Provider: Lexi Iverson Consult Reason/Comments: pneumonia Do you want consulting provider notified?: Yes Primary care physician: [facility] Course: This is a pleasant 67 years old female with past medical history of pneumonia and depression and current cigarette smoker. She follows up with Dr. Almaraz home she hasn't seen for a while. She presents because of fever for for 5 days ago associated with chills and diarrhea about 10 times of loose watery stool with no blood. No associated abdominal pain. However patient she have nausea and vomiting about 3 times per day with no blood in it. Also patient complains from coughing associated with clear phlegm for the last 3 days associated with dyspnea or chest pain. Patient also complains from right hip pain. She reports trauma to her right hip area with her home door for about 2 weeks ago, smoked hurting again about couple days ago. Patient denies sick contacts however she feels malaise and fatigue. She says her last menstrual period about 6 days ago On admission she had a fever of 101.6. With no leukocytosis. Her sodium is 137. Potassium 3.4. Creatinine 0.6. AST is mildly elevated at 37. While a LT and total bilirubin are within normal limits. UA is not suggestive of infection. Urine toxicology is positive for cocaine and marijuana Patient in the emergency room was treated with IV fluids and she was started on levofloxacin and IV vancomycin with symptomatic treatment. pt signed leaving AMA before I have the change to see her and talk to her. based upon my evaluation earlier pt had capacity to make medical decision. Plan - Discharge Summary Discharge Rx Participant: No New Discharge Prescriptions: No Action No Known Home Medications Discharge Medication List No Known Home Medications 05/28/18 [History] Follow up Appointment(s)/Referral(s): [facility] [Primary Care Provider] - 1-2 days Discharge Disposition: HOME SELF-CARE
[2018-05-30] MEDS ORDERED: LEVOFLOXACIN 750MG-D5W PMX 750 MG in DEXTROSE/WATER 1 150ML.BAG IVPB SCH (23:45)
== END 2018-05-29 19:05 | disposition left against medical advice (07) ==
LOC: EC 19:33 → 3OBS 23:43
PROVIDERS: ADMIT Internal Medicine; ATTEND Internal Medicine
DX: J18.9 Pneumonia, unspecified organism (principal); E86.0 Dehydration; R19.7 Diarrhea, unspecified; R11.2 Nausea with vomiting, unspecified; F14.10 Cocaine abuse, uncomplicated; M25.551 Pain in right hip; I95.9 Hypotension, unspecified; R74.0 Nonspecific elevation of levels of transaminase and lactic acid dehydrogenase [LDH]; F17.210 Nicotine dependence, cigarettes, uncomplicated; Z53.21 Procedure and treatment not carried out due to patient leaving prior to being seen by health care provider; Z87.01 Personal history of pneumonia (recurrent); Z88.2 Allergy status to sulfonamides; X58.XXXA Exposure to other specified factors, initial encounter; Y92.009 Unspecified place in unspecified non-institutional (private) residence as the place of occurrence of the external cause; Z80.1 Family history of malignant neoplasm of trachea, bronchus and lung; E66.9 Obesity, unspecified; Z68.30 Body mass index [BMI] 30.0-30.9, adult
CPT/HCPCS: 99285; 96365 ×2; 96375 ×3; 96366; 96367; 96376; 36415; 80053 ×2; 83605; 85025 ×2; 81001; 84703; 87040 ×2; 80306; 87502; 73502; 71046; G0378 ×2; J3370; J2405 ×2; J0696; J1885; J1956; J0131